=== PATIENT | male | born 1980 | race Two or more races ===

== ENCOUNTER 2017-05-31 01:59 | Emergency (ER) | payer OTHER ==
[~2017-05-31] VITALS: Ht 190.5 cm; Wt 95.0 kg
[2017-05-31] MEDS ORDERED: LIDOCAINE 1%, 20ML INFIL ONE (02:30)
[2017-05-31] MEDS ORDERED: DIPH,PERTUSS(ACELL),TET VAC/PF 0.5 ML IM-VACC ONE ×2 (02:30→03:13)
[2017-05-31] MEDS ORDERED: BACITRACIN ZINC OINT 500U/GM, 0.9 GM ONE (02:55)
[2017-05-31] MEDS ORDERED: LIDOCAINE 1%, 20ML ONE (03:09)
[2017-05-31 04:09] VITALS: BP 142/79
== END 2017-05-31 04:11 | disposition home or self-care (01) ==
LOC: ED 02:21
DX: S62.664B Nondisplaced fracture of distal phalanx of right ring finger, initial encounter for open fracture (principal); Z00.01 Encounter for general adult medical examination with abnormal findings; G89.11 Acute pain due to trauma; X58.XXXA Exposure to other specified factors, initial encounter; Y93.89 Activity, other specified; Y92.89 Other specified places as the place of occurrence of the external cause; Y99.8 Other external cause status
CPT/HCPCS: 11740; 29130; 90471; 90715